=== PATIENT | female | born 1960 | race Caucasian/White ===

== ENCOUNTER 2019-07-23 14:48 | Emergency (ER) | payer MEDICAID, OTHER ==
[~2019-07-23] VITALS: Ht 162.6 cm; Wt 59.0 kg
[~2019-07-23 14:48] MED LIST: BUPR150T10; FLUT16SP; HYDR-3972; TRAZ-252
--- NOTE | 2019-07-23 14:57 | NUR ---
[facility] FROM [facility] WHERE PT IS STAYING. AAOX4. NOT IN RESP DISTRESS. CAME IN FOR ABDOMINAL PAIN, NAUSEA AND VOMMITING. PT REPORTS THAT SHE HAS SOME CHRONIC GI ISSUES. PT RATES HER PAIN 8/10. REPORTS X 2 EPISODE OF VOMMITING. STATES THAT SHE FEELS DEHYDRATED. MD WAS AT BEDSIDE FOR EVAL. AWAITING ORDERS
[2019-07-23] MEDS ORDERED: HYDROCODONE/APAP 5/325MG 1 EACH TABLET ONE (15:03)
[2019-07-23] MEDS ORDERED: ONDANSETRON 4 MG TAB.RAPDIS ONE (15:04)
[2019-07-23] MEDS: ONDANSETRON 4 MG TAB.RAPDIS SL ONE (15:07)
[2019-07-23] MEDS: HYDROCODONE/APAP 5/325MG 1 EACH TABLET PO ONE (15:07)
[2019-07-23 15:33] LABS: BASOPHILS # (AUTO) 0.1 /CMM (0.0-0.2); BASOPHILS % (AUTO) 0.6 % (0.0-2.0); EOSINOPHILS % (AUTO) 0.2 % (0.0-6.0); HEMATOCRIT 43 % (33-45); HEMOGLOBIN 14.2 g/dL (11.5-14.8); MEAN CORPUSCULAR HGB CONC 33 g/dl (31.0-36.0); MEAN CORPUSCULAR VOLUME 93 fL (82-100); MONOCYTES # (AUTO) 0.3 /CMM (0.1-1.30); MONOCYTES % (AUTO) 4.3 % (2.0-12.0); NEUTROPHILS # (AUTO) 6.6 /CMM (1.8-8.9); NEUTROPHILS % (AUTO) 82.9 % (43.0-81.0); PLATELET COUNT (AUTO) 283 /CMM (150-450); RED BLOOD CELL COUNT(AUTO) 4.61 MIL/uL (4.0-5.2)
[2019-07-23 15:41] LABS: CALCIUM, SERUM 9.8 mg/dL (8.5-10.1); CREATININE 0.6 mg/dL (0.6-1.3)
[2019-07-23 15:47] LABS: BILIRUBIN,DIRECT 0.1 mg/dL (0.0-0.2); BILIRUBIN,TOTAL 0.4 mg/dL (0.2-1.0)
--- NOTE | 2019-07-23 18:35 | NUR ---
Patient discharged to home in stable condition. Written and verbal after care instructions given. Patient verbalizes understanding of instruction. Pt ambulatory with a steady gait
--- NOTE | 2019-07-23 18:36 | NUR ---
HOMELESS WAIVER SIGNED BY THE PT.
[2019-07-23 18:38] VITALS: BP 132/68
== END 2019-07-23 18:38 | disposition home or self-care (01) ==
LOC: ER 14:49
DX: G89.29 Other chronic pain (principal); R10.9 Unspecified abdominal pain; R11.2 Nausea with vomiting, unspecified; R42 Dizziness and giddiness; Z59.0 Homelessness
CPT/HCPCS: 36415; 80048; 80076; 85025; 99283; Q0162

== ENCOUNTER 2019-09-26 03:28 | Emergency (ER) | payer OTHER ==
[~2019-09-26] VITALS: Ht 167.6 cm; Wt 54.4 kg
--- NOTE | 2019-09-26 03:47 | NUR ---
[id number] FROM [facility] FOR ABD, THROAT PAIN, AND CRAMPING IN MEDIAL ABDOMEN. 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 PATIENT STATES THAT SHE ALSO DID METH EARLIER YESTERDAY. AAOX4. NO SOB. BREATHING EVENLY AND UNLABORED ON ROOM AIR. CONNECTED TO MONITOR.
[2019-09-26] MEDS ORDERED: AMOX/CLAVULANATE 875 MG TABLET ONE (03:52)
[2019-09-26] MEDS ORDERED: ONDANSETRON HCL/PF 4 MG/2 ML VIAL ONE (03:55)
[2019-09-26] MEDS ORDERED: MORPHINE SULFATE INJ 4 MG/ML DISP.SYRIN ONE (03:55)
[2019-09-26] MEDS ORDERED: AMOX/CLAVULANATE 875 MG TABLET PO ONE (04:00)
[2019-09-26] MEDS ORDERED: IV NS 0.9% 1,000 ML BAG IV ONE (04:00)
[2019-09-26] MEDS ORDERED: MORPHINE SULFATE INJ 2 MG/ML DISP.SYRIN IV ONE (04:00)
[2019-09-26] MEDS ORDERED: ONDANSETRON HCL/PF 4 MG/2 ML VIAL IVP ONE (04:00)
[2019-09-26] MEDS ORDERED: IV NS 0.9% 250 ML IV ONE (04:15)
[2019-09-26] MEDS ORDERED: IOHEXOL-300 100 ML VIAL IV ONE (04:15)
[2019-09-26] MEDS ORDERED: CT SWABBABLE VALVE TRANS SET 1 EA INFUS.SET MC ONE (04:15)
[2019-09-26 04:49] LABS: BASOPHILS % (AUTO) 0.1 % (0.0-2.0); HEMATOCRIT 47 % (33-45); HEMOGLOBIN 15.3 g/dL (11.5-14.8); LYMPHOCYTES % (AUTO) 9.1 % (20.0-44.0); MEAN CORPUSCULAR HGB CONC 32 g/dl (31.0-36.0); MEAN CORPUSCULAR VOLUME 94 fL (82-100); MONOCYTES # (AUTO) 0.7 /CMM (0.1-1.30); NEUTROPHILS # (AUTO) 9.6 /CMM (1.8-8.9); NEUTROPHILS % (AUTO) 84.8 % (43.0-81.0); PLATELET COUNT (AUTO) 301 /CMM (150-450); RED BLOOD CELL COUNT(AUTO) 5.03 MIL/uL (4.0-5.2); WHITE BLOOD COUNT (AUTO) 11.4 K/uL (4.3-11.0)
[2019-09-26 05:05] LABS: ALBUMIN 4.7 g/dL (3.4-5.0); BILIRUBIN,DIRECT 0.1 mg/dL (0.0-0.2); BILIRUBIN,TOTAL 0.6 mg/dL (0.2-1.0); CALCIUM, SERUM 11.4 mg/dL (8.5-10.1); CREATININE 0.8 mg/dL (0.6-1.3); POTASSIUM 3.7 mmol/L (3.5-5.1); TOTAL PROTEIN, SERUM 9.1 g/dL (6.4-8.2)
[2019-09-26] MEDS ORDERED: MAG HYDROX/AL HYDROX/SIMETH 30 ML UDC PO ONE (06:00)
[2019-09-26] MEDS ORDERED: LIDOCAINE VISCOUS 2% UD 15 ML UDC MM ONE (06:00)
[2019-09-26] MEDS ORDERED: LIDOCAINE VISCOUS 2% UD 15 ML UDC ONE (06:37)
[2019-09-26] MEDS ORDERED: MAG HYDROX/AL HYDROX/SIMETH 30 ML UDC ONE (06:37)
--- NOTE | 2019-09-26 07:05 | NUR ---
Patient discharged to home in stable condition. Written and verbal after care instructions given. Patient verbalizes understanding of instruction.
--- NOTE | 2019-09-26 07:05 | NUR ---
IV removed. Catheter intact and site benign. Pressure and 4x4 applied to site. No bleeding noted.
[2019-09-26 07:06] VITALS: BP 129/76
== END 2019-09-26 07:36 | disposition home or self-care (01) ==
LOC: ER 03:30
DX: R10.10 Upper abdominal pain, unspecified (principal); R11.2 Nausea with vomiting, unspecified; G89.29 Other chronic pain; Z59.0 Homelessness; Z79.899 Other long term (current) drug therapy
CPT/HCPCS: 36415; 74176; 80048; 80076; 83690; 85025; 96361; 96374; 96375; 99284; J2270; J2405; J7050; Q9967